=== PATIENT | female | born 1990 | race Caucasian/White ===

== ENCOUNTER 2016-10-28 18:29 | Emergency (ER) | payer MEDICAID ==
[~2016-10-28] VITALS: Ht 180.3 cm; Wt 81.5 kg
[2016-10-28 18:30] VITALS: BP 142/65; PULSE 117; RESP 18; TEMP 98.2; O2SAT 98
[2016-10-28] MEDS ORDERED: ONDANSETRON HCL 4 MG/2 ML VIAL IVP ONE (19:30)
[2016-10-28] MEDS ORDERED: SODIUM CHLOR 0.9% 1000 ML INJ 1,000 ML IV ONE ×2 (19:30→20:45)
[2016-10-28] MEDS ORDERED: SODIUM CHLORIDE 0.9% FLUSH 10 ML FLUSH IVF PRN (19:30)
[2016-10-28] MEDS ORDERED: PROCHLORPERAZINE INJ 10 MG/2 ML VIAL IV PUSH ONE ×2 (19:30→21:00)
--- NOTE | 2016-10-28 19:32 | PD ---
HPI Chief Complaint: GI Complaint Time Seen by Provider: 19:25 Travel History International Travel<30 days: No Contact w/Intl Traveler<30days: No Traveled to known affect area: No History of Present Illness HPI The patient was seen and examined in the presence of the nurse. This patient is 7 weeks with an IUP dated by early ultrasound. She has had nausea and vomiting for the last 2 weeks. No diarrhea or pelvic pain or bleeding or fever. Symptoms severity is moderate. She's tried Zofran prescription which hasn't helped much. This is her first . She has a appointment for 9 days from now. No alleviating factors. PFSH Past Medical History Medical History: Denies Significant Hx Diminished Hearing: No ?: LMP: 08/12/16 Past Surgical History Surgical History: No Previous Surgery Social History Alcohol Use: No Tobacco Use: No Substance Use: Yes (POT) Allergies-Medications (Allergen,Severity, Reaction): Coded Allergies: No Known Allergies (Unverified , 10/28/16) Reported Meds & Prescriptions Reported Meds & Active Scripts Active K-Tab (Potassium Chloride) 20 Meq Tab 60 Meq PO Q3HR Phenergan (Promethazine HCl) 25 Mg Tab 25 Mg PO Q6H PRN Phenergan Supp (Promethazine HCl) 25 Mg Supp 25 Mg RECTAL Q6H PRN Reported Diclegis (Doxylamine-Pyridoxine) 10-10 Mg Tab 2 Tab PO HS Review of Systems General / Constitutional: No: Fever Eyes: No: Visual changes HENT: No: Headaches Cardiovascular: No: Chest Pain or Discomfort Respiratory: No: Shortness of Breath Gastrointestinal: Positive: Nausea, Vomiting, No: Abdominal Pain Genitourinary: No: Dysuria Musculoskeletal: No: Pain Skin: No Rash Neurologic: No: Weakness Psychiatric: No: Depression Endocrine: No: Polydipsia Hematologic/Lymphatic: No: Easy Bruising Physical Exam Narrative GENERAL: Well-nourished, well-developed patient with nausea . SKIN: Focused skin assessment reveals no rash and nodules. Skin is Warm and dry. HEAD: Atraumatic. Normocephalic. EYES: Pupils equal and round. No scleral icterus. No injection or drainage. ENT: No nasal bleeding or discharge. Mucous membranes pink and moist. NECK: Trachea midline. No JVD. CARDIOVASCULAR: Regular rate and rhythm. No murmur appreciated. RESPIRATORY: No accessory muscle use. Clear to auscultation. Breath sounds equal bilaterally. GASTROINTESTINAL: Abdomen soft, non-tender, nondistended. Hepatic and splenic margins not palpable. MUSCULOSKELETAL: No obvious deformities. No clubbing. No cyanosis. No edema. NEUROLOGICAL: Awake and alert. No obvious cranial nerve deficits. Motor grossly within normal limits. Normal speech. PSYCHIATRIC: Appropriate mood and affect; insight and judgment normal. Data Data Last Documented VS Vital Signs Date Time Temp Pulse Resp B/P Pulse Ox O2 Delivery O2 Flow Rate FiO2 10/28/16 22:23 76 15 126/70 96 10/28/16 18:30 98.2 Orders Complete Blood Count With Diff (10/28/16 19:28) Basic Metabolic Panel (Bmp) (10/28/16 19:28) Urinalysis - C+S If Indicated (10/28/16 19:28) Iv Access Insert/Monitor (10/28/16 19:28) Ondansetron Inj (Zofran Inj) (10/28/16 19:30) Sodium Chloride 0.9% Flush (Ns Flush) (10/28/16 19:30) Sodium Chlor 0.9% 1000 Ml Inj (Ns 1000 M (10/28/16 19:30) Prochlorperazine Inj (Compazine Inj) (10/28/16 19:30) Sodium Chlor 0.9% 1000 Ml Inj (Ns 1000 M (10/28/16 20:45) Prochlorperazine Inj (Compazine Inj) (10/28/16 21:00) Sodium Chlor 0.9% 1000 Ml Inj (Ns 1000 M (10/28/16 22:15) Labs Laboratory Tests Test 10/28/16 19:40 White Blood Count 25.2 TH/MM3 Red Blood Count 5.69 MIL/MM3 Hemoglobin 16.8 GM/DL Hematocrit 48.7 % Mean Corpuscular Volume 85.6 FL Mean Corpuscular Hemoglobin 29.6 PG Mean Corpuscular Hemoglobin 34.5 % Concent Red Cell Distribution Width 12.9 % Platelet Count 346 TH/MM3 Mean Platelet Volume 9.6 FL Neutrophils (%) (Auto) 83.7 % Lymphocytes (%) (Auto) 10.0 % Monocytes (%) (Auto) 5.6 % Eosinophils (%) (Auto) 0.3 % Basophils (%) (Auto) 0.4 % Neutrophils # (Auto) 21.1 TH/MM3 Lymphocytes # (Auto) 2.5 TH/MM3 Monocytes # (Auto) 1.4 TH/MM3 Eosinophils # (Auto) 0.1 TH/MM3 Basophils # (Auto) 0.1 TH/MM3 CBC Comment DIFF FINAL Differential Comment Urine Color DARK-YELLOW Urine Turbidity HAZY Urine pH 6.0 Urine Specific [place] 1.035 Urine Protein 100 mg/dL Urine Glucose (UA) NEG mg/dL Urine Ketones 150 mg/dL Urine Occult Blood MOD Urine Nitrite NEG Urine Bilirubin MOD Urine Urobilinogen 8.0 MG/DL Urine Leukocyte Esterase NEG Urine RBC 35 /hpf Urine WBC 3 /hpf Urine Squamous Epithelial 4 /hpf Cells Urine Hyaline Casts 8 /lpf Urine Mucus MANY /lpf Microscopic Urinalysis Comment CULT NOT INDICATED Sodium Level 136 MEQ/L Potassium Level 2.9 MEQ/L Chloride Level 101 MEQ/L Carbon Dioxide Level 14.6 MEQ/L Anion Gap 20 MEQ/L Blood Urea Nitrogen 9 MG/DL Creatinine 0.81 MG/DL Estimat Glomerular Filtration 86 ML/MIN Rate Random Glucose 96 MG/DL Calcium Level 9.7 MG/DL [facility] Medical Decision Making Medical Screen Exam Complete: Yes Emergency Medical Condition: Yes Medical Record Reviewed: Yes Differential Diagnosis Vomiting of , hyperemesis gravidarum, dehydration, electrolyte abnormality Narrative Course I have reviewed the patient's electronic medical record. IV placed I gave her IV Zofran and IV Compazine and 1 L normal saline IV bolus CBC shows prominent leukocytosis Metabolic profile shows hypokalemia and decreased bicarbonate Urinalysis shows ketones and 35 red cells, not overly suspicious for infection Abdomen is soft and benign and nontender I gave her second liter of normal saline IV I recommended a third liter just to ensure she was well-hydrated but the patient has declined any more fluid and just wants to go home. She says she wants her IV out. I wrote her some Phenergan both pill and suppository to use as needed. Potassium supplementation written as well Discussed category C nature of the medication and she wants to have it, Zofran is not helping much. I have recommended clear liquids for 24 hours, then gradually advance as tolerated. Return if worse or can't keep any fluids down. Diagnosis Primary Impression: Nausea and vomiting in Additional Impressions: Hypokalemia Dehydration Additional Instructions: I have recommended clear liquids for 24 hours, then gradually advance as tolerated. Follow-up with [employer] physician The patient was warned about potential sedation for the medications they will receive on prescription. Return if worse. Med/Other Pt SpecificInfo: Prescription(s) given Scripts Potassium Chloride ER (K-Tab)20 Meq Tab60 Meq PO Q3HR #6 TAB Ref 0 Prov:Norberto Rangel MD 10/28/16 Promethazine (Phenergan)25 Mg Tab25 Mg PO Q6H PRN (Nausea/Vomiting) #12 TAB Ref 0 Prov:Norberto Rangel MD 10/28/16 Promethazine Supp (Phenergan Supp)25 Mg Supp25 Mg RECTAL Q6H PRN (NAUSEA OR VOMITING) #15 SUPP Ref 0 Prov:Norberto Rangel MD 10/28/16 Disposition: 01 DISCHARGE HOME Condition: Stable Norberto Rangel MD Oct 28, 2016 19:32
[2016-10-28 19:58] LABS: AUTOMATED NEUTROPHIL # 21.1 TH/MM3 (1.8-7.7); BASOPHIL # 0.1 TH/MM3 (0-0.2); BASOPHIL % 0.4 % (0.0-2.0); EOSINOPHIL # 0.1 TH/MM3 (0-0.4); EOSINOPHIL % 0.3 % (0.0-4.0); HEMATOCRIT 48.7 % (35.0-46.0); HEMO FLAGS DIFF FINAL; LYMPHOCYTE # 2.5 TH/MM3 (1.0-4.8); MEAN CELL VOLUME 85.6 FL (80.0-100.0); MEAN CORPUSCULAR HEMOGLOBIN 29.6 PG (27.0-34.0); MEAN CORPUSCULAR HGB CONC 34.5 % (32.0-36.0); MONO % 5.6 % (0.0-8.0); NEUT % 83.7 % (16.0-70.0); PLATELET COUNT 346 TH/MM3 (150-450); RED BLOOD COUNT 5.69 MIL/MM3 (4.00-5.30); RED CELL DISTRIBUTION WIDTH 12.9 % (11.6-17.2); WHITE BLOOD COUNT 25.2 TH/MM3 (4.0-11.0)
[2016-10-28 20:20] LABS: BLOOD, URINE MOD (NEG); COMMENT (UR) CULT NOT INDICATED; CULTURE IF INDICATED CULT NOT INDICATED; GLUCOSE,URINE NEG (NEG); HYALINE CAST, URINE 8 /lpf (RARE); KETONE, URINE 150 mg/dL (NEG); MUCUS URINE MANY /lpf (OCC); NITRITE,URINE NEG (NEG); SQUAMOUS EPITHELIAL CELL URINE 4 /hpf (0-5); URINE COLOR DARK-YELLOW (YELLW/STRAW)
[2016-10-28 20:28] LABS: BICARBONATE 14.6 MEQ/L (21.0-32.0)
[2016-10-28 20:37] LABS: POTASSIUM 2.9 MEQ/L (3.5-5.1)
[2016-10-28] MEDS ORDERED: DOXY10TA PO (20:50)
[2016-10-28] MEDS: SODIUM CHLOR 0.9% 1000 ML INJ 1,000 ML IV ONE ×2 (22:15→22:17)
[2016-10-28 22:23] VITALS: BP 126/70
[2016-10-28] MEDS ORDERED: PROM25TA5 PO (22:33)
[2016-10-28] MEDS ORDERED: PROM1SUP7 RECTAL (22:33)
[2016-10-28] MEDS ORDERED: POTA1TAB4 PO (22:34)
== END 2016-10-28 22:47 | disposition home or self-care (01) ==
LOC: NEPD 18:29
DX: O21.0 Mild hyperemesis gravidarum (principal); E87.6 Hypokalemia; E86.0 Dehydration; Z3A.01 Less than 8 weeks gestation of pregnancy
CPT/HCPCS: 80048; 81001; 85025; 96361; 96374; 96375; 96376; 99284; J0780; J2405; J7030